=== PATIENT | female | born 1950 | race Caucasian/White ===

== ENCOUNTER → 2017-10-01 | Outpatient (CLI) | payer MEDICARE, OTHER | END | disposition home or self-care (01) | LOC: HKI 10:38 | DX: M06.9 Rheumatoid arthritis, unspecified (principal); Z96.651 Presence of right artificial knee joint; Z90.710 Acquired absence of both cervix and uterus | CPT/HCPCS: 73564; 73564-50 ==

== ENCOUNTER → 2017-11-12 | Outpatient (CLI) | payer MEDICARE, OTHER | END | disposition home or self-care (01) | LOC: HKI 10:51 | DX: Z47.89 Encounter for other orthopedic aftercare (principal); Z96.651 Presence of right artificial knee joint; M06.9 Rheumatoid arthritis, unspecified | CPT/HCPCS: G0463 ==